=== PATIENT | male | born 1960 | race Hispanic/Latino ===

== ENCOUNTER 2017-03-12 15:16 | Observation (INO) | payer OTHER ==
[2017-03-12] MEDS ORDERED: Sodium Chloride 0.9% 1,000 ML IV STA (15:37)
--- NOTE | 2017-03-12 15:48 | ED PDOC ---
HPI: Eye Injury/Pain Time Seen by Provider: 03/12/17 15:28 Chief Complaint (Nursing): Eye Problem Chief Complaint (Provider): LEFT eye blurry vision History Per: Patient Onset/Duration Of Symptoms: Days (1 week), Gradual, Worse Since (yesterday) Current Symptoms Are (Timing): Still Present Associated Symptoms: Decreased Vision Additional Complaint(s): Pt s/p LEFT glaucoma shunt surgery 03/04 and having worsening vision since then. Seen by ophthamalogist and advised to go to ER for further evaluation and management. Past Medical History Reviewed: Historical Data, Nursing Documentation, Vital Signs Vital Signs: Last Vital Signs Temp 98.1 F 03/12/17 15:23 Pulse 64 03/12/17 15:23 Resp 20 03/12/17 15:23 BP 155/94 H 03/12/17 15:23 Pulse Ox 99 03/12/17 15:23 - Medical History PMH: No Chronic Diseases - Surgical History Other surgeries: Glaucoma surgery - Family History Family History: States: No Known Family Hx - Social History Current smoker - smoking cessation education provided: No - Home Medications Home Medications: Ambulatory Orders Medication Instructions Recorded Latanoprost [Xalatan] 1 drop RIGHTEYE HS 03/12/17 Ofloxacin Ophth 0.3% [Ocuflox 1 drop LEFTEYE QID 03/12/17 Ophth 0.3%] PrednisoLONE 1% [Pred Forte 1% 1 drop LEFTEYE QID 03/12/17 Opht Susp] - Allergies Allergies/Adverse Reactions: Allergies Allergy/AdvReac Type Severity Reaction Status Date / Time Penicillins Allergy convulsion Verified 03/12/17 15:22 Review of Systems ROS Statement: Except As Marked, All Systems Reviewed And Found Negative (and as per HPI) Eyes: Positive for: Vision Change. Negative for: Pain, Eyelid Inflammation, Redness Physical Exam - Reviewed Nursing Documentation Reviewed: Yes Vital Signs Reviewed: Yes - Physical Exam Appears: Positive for: Non-toxic, No Acute Distress Head Exam: Positive for: ATRAUMATIC, NORMOCEPHALIC Skin: Positive for: Warm, Dry Eye Exam: Positive for: EOMI. Negative for: Conjunctival injection ENT: Negative for: Pharyngeal Erythema, Tonsillar Exudate Neck: Positive for: Painless ROM, Supple Cardiovascular/Chest: Positive for: Regular Rate, Rhythm. Negative for: Murmur Respiratory: Positive for: Normal Breath Sounds. Negative for: Wheezing Gastrointestinal/Abdominal: Positive for: Soft. Negative for: Tenderness Back: Positive for: Normal Inspection. Negative for: Muscle Spasm Extremity: Positive for: Normal ROM. Negative for: Pedal Edema Lymphatic: Negative for: Adenopathy Neurologic/Psych: Positive for: Alert, Oriented (x3). Negative for: Motor/ Sensory Deficits - Laboratory Results Result Diagrams: 03/12/17 15:50 03/12/17 15:50 - ECG O2 Sat by Pulse Oximetry: 99 Pulse Ox Interpretation: Normal Medical Decision Making Medical Decision Making: Per Dr Monterroso, pt would need hospitalization for stat surgical correction Disposition - Clinical Impression Clinical Impression: Glaucoma shunt device, left eye Counseled Patient/Family Regarding: Studies Performed, Diagnosis - Disposition Disposition Time: 15:40 Condition: STABLE - Pt Status Changed To: Hospital Disposition Of: Observation - POA Present On Arrival: None
[2017-03-12 16:10] LABS: BLOOD UREA NITROGEN 15 mg/dl (9-20); CALCIUM 9.5 mg/dL (8.4-10.2); CARBON DIOXIDE 29 mmol/L (22-30); CHLORIDE 100 mmol/L (98-107); GFR AFRICAN-AMERICAN > 60; GLUCOSE,RANDOM 88 mg/dL (75-110); POTASSIUM 3.6 MMOL/L (3.6-5.0); SODIUM 141 mmol/l (132-148)
[2017-03-12 16:14] LABS: BASO # 0.1 K/uL (0.0-0.2); BASO % 1.1 % (0.0-2.0); EOS # 0.1 K/uL (0.0-0.7); HEMATOCRIT 39.6 % (35.0-51.0); LYMPH # 1.9 K/uL (1.0-4.3); LYMPH % 29.4 % (20.0-40.0); MEAN CELL VOLUME 86.8 fl (80.0-94.0); MEAN CORPUSCULAR HEMOGLOBIN 29.1 pg (27.0-31.0); MEAN CORPUSCULAR HGB CONC 33.6 g/dL (33.0-37.0); MEAN PLATELET VOLUME 8.7 fl (7.2-11.7); MONO # 0.5 K/uL (0.0-0.8); MONO % 7.5 % (0.0-10.0); NRBC % 0.1 % (0.0-0.0); RED CELL DISTRIBUTION WIDTH 13.3 % (11.5-14.5); WHITE BLOOD COUNT 6.6 K/uL (4.8-10.8)
[2017-03-12 16:19] LABS: PARTIAL THROMBOPLASTIN TIME 43.9 SECONDS (23.3-32.5)
--- NOTE | 2017-03-12 16:22 | RAD ---
HISTORY: clearance COMPARISON: Delete FINDINGS: LUNGS: The lungs are well inflated and clear. PLEURA: No significant pleural effusion identified, no pneumothorax apparent. CARDIOVASCULAR: Normal. OSSEOUS STRUCTURES: No significant abnormalities. VISUALIZED UPPER ABDOMEN: Normal. OTHER FINDINGS: None. IMPRESSION: No active pulmonary disease.
[2017-03-12] MEDS ORDERED: Tetracaine 0.5% Ophth 2 ML BOTTLE OU ONE (16:53)
[2017-03-12] MEDS ORDERED: BSS 15 ML SOL IR ONE (17:00)
[2017-03-12] MEDS ORDERED: Tetracaine 0.5% Ophth 2 ML BOTTLE OS ONE (17:02)
[2017-03-12] MEDS ORDERED: Maxitrol Opht Susp OS ONE (17:15)
[2017-03-12] MEDS ORDERED: Lactated Ringer's 1,000 ML IV ONE ×2 (17:22→18:19)
[2017-03-12] MEDS ORDERED: Lactated Ringer's 1,000 ML IV SCH (17:30)
[2017-03-12 18:38] VITALS: RESP 18
[2017-03-12 19:21] VITALS: BP 142/82; PULSE 55; TEMP 98.2
--- NOTE | 2017-03-16 06:42 | CARD ---
APPROVED REPORT EKG Measurement Heart [id number] [id number] <Conclusion> Sinus bradycardia with 1st degree AV block Otherwise normal ECG
[2017-03-16 14:38] VITALS: O2SAT 99
--- NOTE | 2017-04-27 14:58 | OP ---
PROCEDURE DATE: 03/12/2017 PREOPERATIVE DIAGNOSES: Glaucoma shunt bleb wound leak, left eye. POSTOPERATIVE DIAGNOSES: Glaucoma shunt bleb wound leak, left eye. OPERATIVE FINDINGS: Pinpoint leak at 12:30 o'clock at the surgical limbus. PROCEDURE: Revision of the glaucoma shunt bleb. SURGEON: Eben Lorenzana MD DESCRIPTION OF PROCEDURE: The patient was prepped and draped in the usual manner for sterile ophthal vasile surgery. Under microsurgical control, the bleb leak was isolated and found to be at the 12:30 o' clock position. Under the ophthalmic microscope, a 9-0 running nylon suture was utilized to correct the bleb seepage. The wound was found to be watertight and terminated the procedure. Maxitrol drops were applied to the eye and the patient was brought to the postanesthesia with stable vitals . Eben Lorenzana MD cc: 70 TT: 04/27/2017 14:57:46 [email or web address]
== END 2017-03-12 19:36 | disposition home or self-care (01) ==
LOC: H.ER 15:16 → H.ERHOLD 15:37
PROVIDERS: ADMIT Ophthalmology; ATTEND Ophthalmology
DX: T85.638A Leakage of other specified internal prosthetic devices, implants and grafts, initial encounter (principal); Y83.8 Other surgical procedures as the cause of abnormal reaction of the patient, or of later complication, without mention of misadventure at the time of the procedure